=== PATIENT | female | born 1965 | race American Indian/Alaskan Native ===

== ENCOUNTER 2018-10-04 01:55 | Emergency (ER) | payer MEDICARE ==
[2018-10-04 02:09] VITALS: BP 137/98
[2018-10-04 03:04] LABS: BUN/Creatinine Ratio 18; Blood Urea Nitrogen 14 mg/dL (7-17); Calcium 8.7 mg/dL (8.4-10.2); Hemolysis Index 24
--- NOTE | 2018-10-04 03:12 | XRay Report ---
PROCEDURE: XR CHEST ROUTINE 2V TECHNIQUE: PA and lateral chest radiographs were obtained. HISTORY: Shortness of breath COMPARISONS: None. FINDINGS: Heart: Normal. Mediastinum/Vessels: Normal. Lungs/Pleural space: The lungs are expanded. There are no infiltrates, effusions or pneumothoraces.. Bony thorax: No acute osseous abnormality. IMPRESSION: There is no acute cardiopulmonary abnormality.. This document is electronically signed by Cuate Chery MD., October 04 2018 03:10:06 AM ET
[2018-10-04 03:29] LABS: Basophils # (Auto) 0.1 K/mm3 (0.0-0.1); Basophils % (Auto) 1.4 % (0.0-1.8); Eosinophils # (Auto) 0.1 K/mm3 (0.0-0.4); Hematocrit 40.2 % (30.3-42.9); Hemoglobin 13.9 gm/dl (10.1-14.3); Lymphocytes # (Auto) 2.8 K/mm3 (1.2-5.4); Mean Corpuscular HGB Conc 35 % (30-34); Mean Corpuscular Volume 96 fl (79-97); Monocytes # (Auto) 0.5 K/mm3 (0.0-0.8); Monocytes % (Auto) 9.1 % (0.0-7.3); Platelet Count 263 K/mm3 (140-440); Red Blood Count 4.19 M/mm3 (3.65-5.03); Red Cell Distribution Width 16.1 % (13.2-15.2)
--- NOTE | 2018-10-04 03:40 | Emergency Department Report ---
ED Shortness of Breath HPI - General Chief Complaint: Dyspnea/Respdistress Stated Complaint: SANGEETA Time Seen by Provider: 10/04/18 03:39 Source: patient Mode of arrival: Ambulatory Limitations: No Limitations - History of Present Illness Initial Comments: Patient is 53 years old female with history of breast cancer 10 years ago in remission. Patient presented to the ER complaining of cough, greenish sputum. Patient stated that she been having bilateral lower rib chest pain when she coughs. Patient denied any fever or chills. Patient is a heavy smoker. Patient denied any nausea or vomiting. MD Complaint: shortness of breath, cough, chest pain - Related Data Allergies Allergy/AdvReac Type Severity Reaction Status Date / Time No Known Allergies Allergy Unverified 10/04/18 02:04 ED Review of Systems ROS: Stated complaint: SANGEETA Other details as noted in HPI Comment: All other systems reviewed and negative Constitutional: denies: chills, fever Respiratory: cough, shortness of breath. denies: orthopnea, SOB with exertion, wheezing Cardiovascular: denies: chest pain, palpitations Gastrointestinal: nausea. denies: abdominal pain, vomiting, diarrhea, constipation, hematemesis, hematochezia Neurological: denies: headache, weakness ED Past Medical Hx - Past Medical History Previous Medical History?: Yes Hx of Cancer: Yes (right) Hx Arthritis: Yes Hx COPD: Yes - Surgical History Past Surgical History?: Yes Hx Breast Surgery: Yes (right breast) - Social History Smoking Status: Current Every Day Smoker Substance Use Type: Alcohol ED Physical Exam - General Limitations: No Limitations General appearance: alert, in no apparent distress - Head Head exam: Present: atraumatic, normocephalic, normal inspection - Eye Eye exam: Present: normal appearance, PERRL - ENT ENT exam: Present: normal exam, normal orophraynx, mucous membranes moist - Neck Neck exam: Present: normal inspection, full ROM. Absent: tenderness, meningismus, lymphadenopathy, thyromegaly - Respiratory Respiratory exam: Present: normal lung sounds bilaterally. Absent: respiratory distress, wheezes, rales, rhonchi, stridor, accessory muscle use, decreased breath sounds, prolonged expiratory - Cardiovascular Cardiovascular Exam: Present: regular rate, normal rhythm, normal heart sounds - GI/Abdominal GI/Abdominal exam: Present: soft, normal bowel sounds. Absent: distended, tenderness, guarding, rebound, rigid, organomegaly, mass, bruit, pulsatile mass, hernia - Extremities Exam Extremities exam: Present: normal inspection, full ROM, normal capillary refill - Back Exam Back exam: Present: normal inspection, full ROM. Absent: tenderness, CVA tenderness (R), CVA tenderness (L), muscle spasm, paraspinal tenderness, vertebral tenderness - Neurological Exam Neurological exam: Present: alert, oriented X3, CN II-XII intact, normal gait - Skin Skin exam: Present: warm, intact, normal color ED Course Vital Signs 10/04/18 02:05 Temperature 97.9 F Pulse Rate 104 H Respiratory 16 Rate Blood Pressure 137/98 O2 Sat by Pulse 98 Oximetry ED Medical Decision Making - Lab Data Result diagrams: 10/04/18 02:23 10/04/18 02:23 - Radiology Data Radiology results: report reviewed Referring Physician: ALEXEI STERLING Patient Name: KASHIF CASTILLO Date of : 1965 Sex: Female Report Date: 2018-10-04 Report Status: Finalized Findings [address] [address] XRay Report Signed Patient: KASHIF CASTILLO MR#: [id number] : 1965 Acct:[id number] Age/Sex: 53 / F ADM Date: 10/04/18 Loc: ED Attending Dr: Ordering Physician: ALEXEI STERLING MD Date of Service: 10/04/18 Procedure(s): XR chest routine 2V Accession Number(s): [id number] cc: ALEXEI STERLING MD Fluoro Time In Minutes: PROCEDURE: XR CHEST ROUTINE 2V TECHNIQUE: PA and lateral chest radiographs were obtained. HISTORY: Shortness of breath COMPARISONS: None. FINDINGS: Heart: Normal. Mediastinum/Vessels: Normal. Lungs/Pleural space: The lungs are expanded. There are no infiltrates, effusions or pneumothoraces.. Bony thorax: No acute osseous abnormality. IMPRESSION: There is no acute cardiopulmonary abnormality.. This document is electronically signed by Cuate Singh MD., October 04 2018 03:10:06 AM ET Transcribed By: CO Dictated By: CUATE SINGH MD Electronically Authenticated By: CUATE SINGH MD Signed Date/Time: 10/04/18311 DD/ 0 TD/TT: 10/04/18240 Critical care attestation.: If time is entered above; I have spent that time in minutes in the direct care of this critically ill patient, excluding procedure time. ED Disposition Clinical Impression: Acute bronchitis Disposition: DC-01 TO HOME OR SELFCARE Is pt being admited?: No Condition: Stable Instructions: Acute Bronchitis (ED) Referrals: [facility]AK[facility] R[facility]MOND [Other] - 3-5 Days
== END 2018-10-04 04:25 | disposition home or self-care (01) ==
LOC: ED 01:55
DX: J20.9 Acute bronchitis, unspecified (principal); M19.90 Unspecified osteoarthritis, unspecified site; J44.9 Chronic obstructive pulmonary disease, unspecified; F17.200 Nicotine dependence, unspecified, uncomplicated; Z85.89 Personal history of malignant neoplasm of other organs and systems
CPT/HCPCS: 36415; 71046; 80048; 85025

== ENCOUNTER 2019-07-09 09:38 | Outpatient (CLI) | payer MEDICARE ==
--- NOTE | 2019-07-10 09:57 | Mammography Report ---
DIGITAL SCREENING MAMMOGRAM WITH CAD, 07/09/2019 INDICATION: Routine screening mammography. Breast cancer survivor status post right mastectomy. TECHNIQUE: Digital left 2D mammography was obtained in the craniocaudal and mediolateral oblique pro jections. This examination was interpreted with the benefit of Computer-Aided Detection analysis. COMPARISON: None available. FINDINGS: Breast Density: The breast is heterogeneously dense, which may obscure small masses. There is no evidence of dominant mass, suspicious calcifications or architectural distortion in the l eft breast. IMPRESSION: No mammographic evidence of malignancy. Follow up recommendation: Routine yearly BI-RADS Category 1: Negative. A "normal" or negative report should not discourage follow up or biopsy of a clinically significant f inding. A written summary of these findings will be mailed to the patient. The patient will be entered into a mammography reporting system which will generate a reminder letter for the patient's next appointmen t at the appropriate interval. The [employer] recommends yearly mammograms starting at age 40 and continuing as l deven as a woman is in good health. Breast MRI is recommended for women with an approximate 20-25% or greater lifetime risk of breast cancer, including women with a strong family history of breast or ova kalina cancer or who have been treated for Hodgkin's disease. Signer Name: Eduardo Bartlett MD Signed: 07/10/2019 9:52 AM Workstation Name: [id number]
== END 2019-07-09 09:39 | disposition home or self-care (01) ==
LOC: MAMMO 09:38
PROVIDERS: ATTEND Internal Medicine Hematology & Oncology
DX: Z12.31 Encounter for screening mammogram for malignant neoplasm of breast (principal)

== ENCOUNTER 2020-04-14 00:39 | Emergency (ER) | payer MEDICARE ==
[2020-04-14 00:47] VITALS: BP 97/71
== END 2020-04-14 04:15 | disposition left against medical advice (07) ==
LOC: ED 00:39
DX: M79.606 Pain in leg, unspecified (principal); Z53.21 Procedure and treatment not carried out due to patient leaving prior to being seen by health care provider

== ENCOUNTER 2020-09-22 08:53 | Outpatient (CLI) | payer MEDICARE ==
[2020-09-22 11:02] LABS: Blood Urea Nitrogen 9 mg/dL (7-17)
--- NOTE | 2020-09-22 12:00 | Cat Scan Report ---
CT CHEST, ABDOMEN, AND PELVIS WITH IV CONTRAST INDICATION / CLINICAL INFORMATION: MAIN. TECHNIQUE: Axial CT images were obtained through the chest, abdomen, and pelvis after IV contrast. All CT scans at this location are performed using CT dose reduction for ALARA by means of automated exposure contr ol. COMPARISON: None available. FINDINGS: HEART: No significant abnormality. THORACIC AORTA: No significant abnormality. MEDIASTINUM and MARCO: No significant abnormality. LUNGS: Small left lung base consolidation is noted. Paraseptal emphysematous changes with biapical pr edominance. PLEURA: No significant pleural effusion. No pneumothorax. ADDITIONAL CHEST FINDINGS: Prior right mastectomy. LIVER: Focal areas of hypoattenuation involving hepatic segment 4 likely represent focal fatty replac ement. Diffuse steatosis is also noted. There is a high attenuating lesion right hepatic lobe (series 3 image 66) likely flash filling hemangioma. GALLBLADDER: No significant abnormality. BILE DUCTS: No significant abnormality. PANCREAS: No significant abnormality. SPLEEN: No significant abnormality. ADRENALS: No significant abnormality. RIGHT KIDNEY / URETER: No significant abnormality. LEFT KIDNEY / URETER: No significant abnormality. STOMACH and SMALL BOWEL: Prominent rugal folds are noted in the stomach may represent mild gastritis. No mechanical bowel obstruction. COLON: No significant abnormality. APPENDIX: No significant abnormality. PERITONEUM: No free fluid. No free air. No fluid collection. LYMPH NODES: No significant adenopathy. AORTA and ARTERIES: Mild atherosclerotic calcification without acute abnormality. IVC and VEINS: No significant abnormality. URINARY BLADDER: No significant abnormality. REPRODUCTIVE ORGANS: The uterus is retroflexed and lying adjacent to the colon on the right. ADDITIONAL FINDINGS: None. SKELETAL SYSTEM: Diffuse osteopenia. Multilevel degenerative changes are noted of the spine. No aggre ssive osseous lesions. IMPRESSION: 1. Left lung base consolidation is favored to represent atelectasis. Clinical correlation to rule out a superimposed infectious process. 2. Paraseptal emphysematous lung changes. 3. Prior right mastectomy. 4. Prominent rugal folds of the stomach may represent mild gastritis. 5. Please see above for details. Signer Name: Peter Stephens MD Signed: 09/22/2020 11:56 AM Workstation Name: [id number]
--- NOTE | 2020-09-22 13:47 | Nuclear Medicine Report ---
Whole body bone scan INDICATION: Abnormal weight loss. History of breast cancer. TECHNIQUE: A total of 25.5 millicuries of technetium 99 MDP was injected IV per protocol. Whole-body images were obtained. COMPARISON: CT chest abdomen pelvis performed 09/22/2020. FINDINGS: Diffuse radiotracer uptake identified throughout the axial and appendicular skeleton with r enal excretion. IMPRESSION: No abnormal uptake identified to suggest metastatic disease. Signer Name: Remi Odell MD Signed: 09/22/2020 1:43 PM Workstation Name: [id number]
== END 2020-09-22 08:54 | disposition home or self-care (01) ==
LOC: NM 08:53
PROVIDERS: ATTEND Internal Medicine Hematology & Oncology
DX: J34.9 Unspecified disorder of nose and nasal sinuses (principal); J98.11 Atelectasis; K76.0 Fatty (change of) liver, not elsewhere classified; R63.4 Abnormal weight loss; M81.0 Age-related osteoporosis without current pathological fracture; R79.89 Other specified abnormal findings of blood chemistry; F17.210 Nicotine dependence, cigarettes, uncomplicated; M47.814 Spondylosis without myelopathy or radiculopathy, thoracic region; R63.6 Underweight; F09 Unspecified mental disorder due to known physiological condition; Z68.1 Body mass index [BMI] 19.9 or less, adult; E53.8 Deficiency of other specified B group vitamins; Z85.3 Personal history of malignant neoplasm of breast; Z80.3 Family history of malignant neoplasm of breast; Z90.11 Acquired absence of right breast and nipple
CPT/HCPCS: 36415; 71260; 74177; 78306; 82565; 84520; A9503; Q9967